=== PATIENT | female | born 1985 | race Caucasian/White ===

== ENCOUNTER 2018-05-08 13:43 | Inpatient (IN) | payer OTHER ==
[~2018-05-08] VITALS: Ht 152.4 cm; Wt 64.4 kg
[2018-05-08] MEDS: LR 1,000 ML IV SCH ×4 (14:18→22:44)
[2018-05-08] MEDS ORDERED: OXYTOCIN/0.9 % SODIUM CHLORIDE 1,000 ML IV SCH (14:18)
[2018-05-08] MEDS ORDERED: NALBUPHINE HCL 10 MG/ML AMP IVP PRN (14:30)
[2018-05-08] MEDS ORDERED: TERBUTALINE SULFATE 1 MG/ML VIAL SUBCUT ONE (14:30)
[2018-05-08] MEDS ORDERED: OXYTOCIN/0.9 % SODIUM CHLORIDE 1,000 ML IV ONE (14:41)
[2018-05-08] MEDS ORDERED: AMPICILLIN SODIUM 2 GM in NS 100 ML IV ONE (15:00)
[2018-05-08] MEDS ORDERED: AMPICILLIN SODIUM 2 GM VIAL ONE (15:00)
[2018-05-08 15:39] LABS: BASOPHILS # (AUTO) 0.2 K/uL (0.0-0.2); BASOPHILS % (AUTO) 2.3 % (0.0-2.0); EOSINOPHILS # (AUTO) 0.1 K/uL (0.0-0.4); HEMATOCRIT 36.6 % (36-48); HEMOGLOBIN 11.4 g/dL (12.0-16.0); LYMPHOCYTES # (AUTO) 1.7 K/uL (1.0-5.5); LYMPHOCYTES % (AUTO) 21.3 % (20.5-51.5); MEAN CORPUSCULAR HEMOGLOBIN 25 pg (27-31); MEAN CORPUSCULAR HGB CONC 31 % (32-36); MEAN CORPUSCULAR VOLUME 81 fL (79.0-98.0); MONOCYTES # (AUTO) 0.4 K/uL (0.0-1.0); MONOCYTES % (AUTO) 4.6 % (1.7-9.3); NEUTROPHILS # (AUTO) 5.5 K/uL (1.8-7.7); NEUTROPHILS % (AUTO) 70.8 % (40.0-70.0); PLATELET COUNT (AUTO) 258 K/uL (130-430); RED BLOOD CELL COUNT(AUTO) 4.53 MIL/uL (4.2-6.2); RED CELL DISTRIBUTION WIDTH 12.5 % (9.0-15.0); WHITE BLOOD COUNT (AUTO) 7.9 K/uL (4.8-10.8)
[2018-05-08 18:29] VITALS: BP_SYST 109
[2018-05-08] MEDS: AMPICILLIN SODIUM 1 GM in NS 50 ML IV SCH ×2 (18:37→22:44)
[2018-05-08] MEDS ORDERED: fentaNYL CITRATE/PF 100 MCG/2 ML AMP ONE (20:26)
[2018-05-08] MEDS ORDERED: ROPIVACAINE 0.2% 100 ML ONE (20:27)
[2018-05-08] MEDS ORDERED: LR 500 ML IV ONE (20:50)
[2018-05-08] MEDS ORDERED: FENT2mCg/mL-ROPIVA0.2%/NS EPID 150 ML EP SCH (21:00)
[2018-05-09] MEDS ORDERED: OXYTOCIN 10 UNIT/ML VIAL IM ONE (02:00)
[2018-05-09] MEDS ORDERED: OXYTOCIN 10 UNIT/ML VIAL ONE (02:08)
[2018-05-09] MEDS ORDERED: DOCUSATE SODIUM 100 MG CAPSULE PO PRN (02:45)
[2018-05-09] MEDS ORDERED: WITCH HAZEL LEAF 1 MED.PAD MED.PAD TP PRN (02:45)
[2018-05-09] MEDS ORDERED: LANOLIN 7 GM OINT. TP PRN (02:45)
[2018-05-09] MEDS ORDERED: DIPH-TET-PERTUS Vaccine 0.5 ML VIAL (ADACEL) I.M. PRN (02:45)
[2018-05-09] MEDS ORDERED: OXYCODONE/ACETAMINOPHEN 5-325 TABLET PO PRN ×2 (02:45)
[2018-05-09] MEDS ORDERED: MEASLES,MUMPS&RUBELLA VACC/PF 12500 UNIT/0.5 ML VIAL SUBQ PRN (02:45)
[2018-05-09] MEDS: IBUPROFEN 600 MG TABLET PO SCH ×4 (04:52→23:54)
[2018-05-09] MEDS ORDERED: TEMAZEPAM 15 MG CAPSULE PO PRN (21:00)
[2018-05-10] MEDS: IBUPROFEN 600 MG TABLET PO SCH ×2 (06:07→11:30)
[2018-05-10 08:01] LABS: HEMATOCRIT 30.7 % (36-48); HEMOGLOBIN 9.5 g/dL (12.0-16.0)
== END 2018-05-10 12:15 | disposition home or self-care (01) | DRG 807 ==
LOC: SPU 13:43
PROVIDERS: ADMIT Obstetrics & Gynecology; ATTEND Obstetrics & Gynecology
PROC: 10E0XZZ Delivery of Products of Conception, External Approach (ICD-10-PCS; principal; 2018-05-09)
PROC: 3E033VJ Introduction of Other Hormone into Peripheral Vein, Percutaneous Approach (ICD-10-PCS; 2018-05-09)
PROC: 10907ZC Drainage of Amniotic Fluid, Therapeutic from Products of Conception, Via Natural or Artificial Opening (ICD-10-PCS; 2018-05-09)
PROC: 0W8NXZZ Division of Female Perineum, External Approach (ICD-10-PCS; 2018-05-09)
PROC: 3E0R3BZ Introduction of Anesthetic Agent into Spinal Canal, Percutaneous Approach (ICD-10-PCS; 2018-05-09)
PROC: 00HU33Z Insertion of Infusion Device into Spinal Canal, Percutaneous Approach (ICD-10-PCS; 2018-05-09)
DX: O99.824 Streptococcus B carrier state complicating childbirth (principal); Z37.0 Single live birth; Z3A.40 40 weeks gestation of pregnancy
CPT/HCPCS: 36415; 85018-TC; 85025; 86592; 86886; 86900; 86901; J0290; J2590; J2795; J3010